=== PATIENT | female | born 1935 | race Caucasian/White ===

== ENCOUNTER 2019-09-18 16:04 | Inpatient (IN) ==
[2019-09-18] MEDS ORDERED: 0.9 % Sodium Chloride 1,000 ML IVC ONE (16:27)
[2019-09-18 17:12] LABS: Albumin 3.1 g/dL (3.5-5.7); Albumin/Globulin Ratio 1.1 (1.1-2.2); Bilirubin,Total 0.2 mg/dL (0.3-1.0); Calcium 8.6 mg/dL (8.6-10.3); Globulin 2.9 g/dL (2.4-3.5); Magnesium 1.9 mg/dL (1.6-2.6); Phosphorous 4.2 mg/dL (2.7-4.5); Potassium 4.9 mEq/L (3.5-5.1)
[2019-09-18 17:19] LABS: Basophils % 0.5 %; Eosinophils # 0.3 K/mcL (0.0-0.6); Eosinophils % 5.3 %; Hemoglobin 7.9 g/dL (11.5-15.4); Immature Granulocytes % 0.3 % (0-4); Lymphocytes # 1.7 K/mcL (0.6-4.6); Lymphocytes % 29.7 %; Mean Corpuscular HGB Conc 31.6 g/dL (31.6-35.5); Mean Corpuscular Hemoglobin 31.1 pg (28.0-33.3); Mean Corpuscular Volume 98.4 fL (83.0-100.0); Monocytes # 0.5 K/mcL (0.0-1.3); Monocytes % 9.1 %; Neutrophils # 3.2 K/mcL (1.6-8.9); Platelet Count 321 K/mcL (140-400); Red Blood Count 2.54 M/mcL (3.82-4.97); Red Cell Distribution Width 12.8 % (11.5-14.5); Segmented Neutrophils % 55.1 %; White Blood Count 5.8 K/mcL (4.3-11.1)
[2019-09-18] MEDS ORDERED: Naloxone 0.4 MG/ML INJ IVP PRN (17:35)
[2019-09-18] MEDS ORDERED: Ipratropium/Albuterol Neb 3 ML IH PRN (17:41)
[2019-09-18 17:43] LABS: Bilirubin,Urine Negative (Negative); Blood,Urine Moderate (Negative); Clarity,Urine Clear (Clear); Color,Urine Yellow (Yellow); Glucose,Urine (UA) Normal (Normal); Ketones,Urine Negative (Negative); Leukocyte Esterase,Urine Small (Negative); Nitrite,Urine Negative (Negative); PH,Urine 7.5 pH Units (5.0-8.0); Protein,Urine >=300 mg/dL (Neg-Trace); Urobilinogen,Urine Normal (Normal)
[2019-09-18 17:52] LABS: Squamous Epithelial Cell,Urine Few per lpf (None-Few); WBC,Urine 0-3 per hpf (0-3)
[2019-09-18 17:55] LABS: Bacteria,Urine Few per hpf (None-Few)
[2019-09-18 18:12] LABS: Uric Acid 9.1 mg/dL (2.3-7.6)
[2019-09-18] MEDS: amLODIPine 5 MG TABLET PO SCH (18:13)
[2019-09-19 06:23] LABS: Prothrombin Time 10.9 Seconds (9.4-12.1)
[2019-09-19 06:24] LABS: Basophils % 0.5 %; Eosinophils % 0.3 %; Immature Granulocytes % 0.5 % (0-4); Lymphocytes % 15.7 %; Mean Corpuscular Hemoglobin 31.3 pg (28.0-33.3); Mean Corpuscular Volume 97.7 fL (83.0-100.0); Mean Platelet Volume 9.5 fL (9.4-12.4); Monocytes # 0.4 K/mcL (0.0-1.3); Monocytes % 5.5 %; Platelet Count 310 K/mcL (140-400); Red Blood Count 2.56 M/mcL (3.82-4.97); Red Cell Distribution Width 12.8 % (11.5-14.5); Segmented Neutrophils % 77.5 %; White Blood Count 6.5 K/mcL (4.3-11.1)
[2019-09-19 06:40] LABS: Calcium 8.2 mg/dL (8.6-10.3); Chol/HDL Ratio 2.9 (0-4.9); Magnesium 1.7 mg/dL (1.6-2.6); Phosphorous 4.2 mg/dL (2.7-4.5); Potassium 4.3 mEq/L (3.5-5.1)
[2019-09-19 06:42] LABS: % Iron Saturation 20 % (15-50); Iron 47 mcg/dL (50-170); Transferrin 170 mg/dL (203-362)
[2019-09-19] MEDS ORDERED: METHENAMINE HIPPURATE 1 GM PO SCH (09:00)
[2019-09-19] MEDS: amLODIPine 5 MG TABLET PO SCH (09:10)
[2019-09-19] MEDS: levETIRAcetam 250 MG TABLET PO SCH ×2 (09:10→15:49)
[2019-09-19] MEDS: Gabapentin 100 MG CAPSULE PO SCH ×2 (09:49→21:13)
[2019-09-20] MEDS: levETIRAcetam 250 MG TABLET PO SCH ×2 (06:31→17:25)
[2019-09-20 08:07] LABS: Calcium 8.1 mg/dL (8.6-10.3)
[2019-09-20 08:56] LABS: Hematocrit 26.1 % (35.3-44.9); Hemoglobin 8.1 g/dL (11.5-15.4); Mean Corpuscular Hemoglobin 30.6 pg (28.0-33.3); Mean Corpuscular Volume 98.5 fL (83.0-100.0); Mean Platelet Volume 9.5 fL (9.4-12.4); Platelet Count 356 K/mcL (140-400); Red Blood Count 2.65 M/mcL (3.82-4.97); Red Cell Distribution Width 13.2 % (11.5-14.5); White Blood Count 7.6 K/mcL (4.3-11.1)
[2019-09-20] MEDS: Gabapentin 100 MG CAPSULE PO SCH ×2 (09:47→22:00)
[2019-09-20] MEDS: amLODIPine 5 MG TABLET PO SCH (09:47)
[2019-09-20] MEDS ORDERED: Ferumoxytol 510 MG in 0.9 % Sodium Chloride 100 ML IVPB ONE (11:28)
[2019-09-20 13:08] LABS: Hepatitis B Surface Antigen Nonreactive (Nonreactive)
[2019-09-20 13:37] LABS: Hepatitis B Core IgM Nonreactive (Nonreactive)
[2019-09-21] MEDS: levETIRAcetam 250 MG TABLET PO SCH (06:00)
[2019-09-21 06:59] LABS: Hemoglobin 9.2 g/dL (11.5-15.4); Mean Corpuscular HGB Conc 31.7 g/dL (31.6-35.5); Mean Corpuscular Hemoglobin 30.5 pg (28.0-33.3); Mean Platelet Volume 9.5 fL (9.4-12.4); Platelet Count 421 K/mcL (140-400); Red Blood Count 3.02 M/mcL (3.82-4.97); Red Cell Distribution Width 13.2 % (11.5-14.5); White Blood Count 7.8 K/mcL (4.3-11.1)
[2019-09-21 07:05] LABS: Calcium 8.6 mg/dL (8.6-10.3); Potassium 4.5 mEq/L (3.5-5.1)
[2019-09-21] MEDS: amLODIPine 5 MG TABLET PO SCH (08:44)
[2019-09-21] MEDS: Gabapentin 100 MG CAPSULE PO SCH (08:44)
[2019-09-21 11:19] VITALS: BP 144/70
== END 2019-09-21 16:04 | disposition home or self-care (01) | DRG 684 ==
LOC: 3BNU 16:04 → EMEROOARM 16:04 → 3BNU 18:44
PROVIDERS: ADMIT Internal Medicine; ATTEND Internal Medicine

== ENCOUNTER 2020-12-20 12:45 | Observation (INO) ==
[2020-12-20] MEDS ORDERED: *HR* Heparin 5,000 UNIT/ML VIAL HE ONE (16:00)
[2020-12-20] MEDS ORDERED: 0.9 % Sodium Chloride 500 ML IVC ONE (16:00)
[2020-12-20 16:47] LABS: Basophils % 0.5 %; Eosinophils # 0.2 K/mcL (0.0-0.6); Eosinophils % 2.3 %; Hematocrit 31.9 % (35.3-44.9); Hemoglobin 10.2 g/dL (11.5-15.4); Immature Granulocytes % 0.4 % (0-4); Lymphocytes # 2.2 K/mcL (0.6-4.6); Mean Corpuscular Volume 106.3 fL (83.0-100.0); Mean Platelet Volume 9.3 fL (9.4-12.4); Monocytes # 0.6 K/mcL (0.0-1.3); Monocytes % 7.5 %; Neutrophils # 5.1 K/mcL (1.6-8.9); Platelet Count 349 K/mcL (140-400); Red Cell Distribution Width 11.8 % (11.5-14.5); Segmented Neutrophils % 62.3 %; White Blood Count 8.1 K/mcL (4.3-11.1)
[2020-12-20] MEDS ORDERED: Acetaminophen 325 MG TABLET PO PRN (16:49)
[2020-12-20] MEDS ORDERED: Naloxone 0.4 MG/ML INJ IVP PRN (16:49)
[2020-12-20] MEDS ORDERED: Ondansetron ODT 4 MG TAB.RAPDIS SL PRN (16:49)
[2020-12-20 17:02] LABS: Calcium 9.3 mg/dL (8.6-10.3); Potassium 4.4 mEq/L (3.5-5.1)
[2020-12-20 19:23] LABS: Hepatitis B Surface Antibody < 3.10 mIU/mL
[2020-12-20 19:34] LABS: Hepatitis B Surface Antigen Nonreactive (Nonreactive)
[2020-12-20] MEDS: *HR* Heparin 5,000 UNIT/ML VIAL SQ SCH ×2 (21:27→21:31)
[2020-12-21 04:27] LABS: Hematocrit 30.2 % (35.3-44.9); Hemoglobin 9.7 g/dL (11.5-15.4); Mean Corpuscular HGB Conc 32.1 g/dL (31.6-35.5); Mean Corpuscular Hemoglobin 33.9 pg (28.0-33.3); Mean Corpuscular Volume 105.6 fL (83.0-100.0); Mean Platelet Volume 8.9 fL (9.4-12.4); Platelet Count 331 K/mcL (140-400); Red Blood Count 2.86 M/mcL (3.82-4.97); Red Cell Distribution Width 11.7 % (11.5-14.5); White Blood Count 8.1 K/mcL (4.3-11.1)
[2020-12-21 04:46] LABS: Magnesium 2.6 mg/dL (1.6-2.6); Phosphorous 8.3 mg/dL (2.7-4.5); Potassium 4.3 mEq/L (3.5-5.1)
[2020-12-21] MEDS: *HR* Heparin 5,000 UNIT/ML VIAL SQ SCH ×2 (05:12→13:59)
[2020-12-21] MEDS ORDERED: *HR* Heparin 10,000 UNIT/10 ML VIAL IV PRN (08:48)
[2020-12-21] MEDS ORDERED: 0.9 % Sodium Chloride 250 ML IVC PRN (08:48)
[2020-12-21] MEDS ORDERED: amLODIPine 5 MG TABLET PO SCH (09:00)
[2020-12-21] MEDS ORDERED: 0.9 % Sodium Chloride 1,000 ML PRIME SCH (09:00)
[2020-12-21] MEDS ORDERED: Gabapentin 100 MG CAPSULE PO SCH (09:00)
[2020-12-21 15:54] VITALS: BP 92/54
== END 2020-12-21 16:50 | disposition home or self-care (01) ==
LOC: 2ANU 12:45 → EMEROOARM 12:45 → SUATTDRO 18:57 → 2ANU 20:50
PROVIDERS: ADMIT Internal Medicine; ATTEND Internal Medicine

== ENCOUNTER 2022-01-30 15:34 | Inpatient (IN) ==
[2022-01-30 18:45] LABS: Hematocrit 19.7 % (35.3-44.9); Red Cell Distribution Width 15.4 % (11.5-14.5)
[2022-01-30 18:47] LABS: Basophils % 0.4 %; Eosinophils % 0.4 %; Immature Granulocytes % 0.9 % (0-4); Lymphocytes % 10.7 %; Mean Corpuscular HGB Conc 29.4 g/dL (31.6-35.5); Mean Corpuscular Hemoglobin 33.9 pg (28.0-33.3); Mean Corpuscular Volume 115.2 fL (83.0-100.0); Mean Platelet Volume 9.5 fL (9.4-12.4); Monocytes # 0.8 K/mcL (0.0-1.3); Monocytes % 8.3 %; Neutrophils # 7.3 K/mcL (1.6-8.9); Nucleated Red Blood Cells 0.3 /100 WBC (0); Platelet Count 488 K/mcL (140-400); Red Blood Count 1.71 M/mcL (3.82-4.97); Segmented Neutrophils % 79.3 %; White Blood Count 9.2 K/mcL (4.3-11.1)
[2022-01-30 18:51] LABS: Hemoglobin 5.8 g/dL (11.5-15.4)
[2022-01-30 19:13] LABS: Potassium 5.2 mEq/L (3.5-5.1); Troponin I 1.68 ng/mL (< 0.04)
[2022-01-30 19:14] LABS: Macrocytosis Present (Not Present)
[2022-01-30 19:57] LABS: INR 1.2
[2022-01-30 20:06] LABS: Alanine Aminotransferase 5 Units/L (7-52); Albumin 3.6 g/dL (3.5-5.7); Albumin/Globulin Ratio 1.1 (1.1-2.2); Alkaline Phosphatase 63 Units/L (34-104); Aspartate Amino Transferase 16 Units/L (13-39); Bilirubin,Direct 0.2 mg/dL (0.0-0.2); Bilirubin,Indirect 0.4 mg/dL (0.0-1.0); Bilirubin,Total 0.6 mg/dL (0.3-1.0); Globulin 3.2 g/dL (2.4-3.5); Lipase 37 Units/L (11-82); Magnesium 2.8 mg/dL (1.6-2.6); Total Protein 6.8 g/dL (6.4-8.9)
[2022-01-30 20:27] LABS: Bacteria,Urine Few per hpf (None-Few); Bilirubin,Urine Small (Negative); Blood,Urine Small (Negative); Clarity,Urine Clear (Clear); Color,Urine Dark-Yellow (Yellow); Glucose,Urine (UA) Normal (Normal); Ketones,Urine Trace mg/dL (Negative); Leukocyte Esterase,Urine Large (Negative); Nitrite,Urine Positive (Negative); PH,Urine 7.5 pH Units (5.0-8.0); Protein,Urine 100 mg/dL (Neg-Trace); RBC,Urine 0-3 per hpf (0-3); Specific Gravity,Urine 1.016 (1.010-1.025); Squamous Epithelial Cell,Urine Moderate per hpf (None-Few); WBC,Urine 30-50 per hpf (0-3)
[2022-01-30] MEDS ORDERED: cefTRIAXone 1,000 MG in 0.9 % Sodium Chloride 10 ML IVP ONE (20:47)
[2022-01-30] MEDS ORDERED: 0.9 % Sodium Chloride 250 ML ONE (21:22)
[2022-01-30] MEDS ORDERED: *HR* HYDROcodone/Acet 5/325 mg TABLET PO PRN (21:29)
[2022-01-30] MEDS ORDERED: Naloxone 0.4 MG/ML INJ IVP PRN (21:29)
[2022-01-30] MEDS ORDERED: *HR* OxyCODONE Immed Rel 5 MG TABLET PO PRN (21:29)
[2022-01-30] MEDS ORDERED: Acetaminophen 325 MG TABLET PO PRN (21:29)
[2022-01-30] MEDS ORDERED: *HR* Promethazine 25 MG/ML VIAL IM PRN (21:29)
[2022-01-30] MEDS ORDERED: Melatonin 3 MG TABLET PO PRN (21:29)
[2022-01-30] MEDS ORDERED: Ondansetron 4 MG/2 ML VIAL IVP PRN (21:29)
[2022-01-30] MEDS ORDERED: Perflutren Lipid Microsphere 1.3 ML in 0.9 % Sodium Chloride 8.7 ML IVP PRN (22:05)
[2022-01-30] MEDS ORDERED: SODIUM ZIRCONIUM CYCLOSILICATE 5 GM POWD.PACK PO ONE (22:20)
[2022-01-30 22:55] LABS: % Iron Saturation 23 % (15-50); Iron 53 mcg/dL (50-170); Lactate Dehydrogenase 281 Units/L (140-271); Transferrin 167 mg/dL (203-362)
[2022-01-30 23:03] LABS: Folate 9.2 ng/mL (3.0-16.0)
[2022-01-30 23:14] LABS: Ferritin > 1500 ng/mL (10-120)
[2022-01-30] MEDS: Gabapentin 100 MG CAPSULE PO SCH (23:58)
[2022-01-31 00:16] LABS: Immature Reticulocyte % 40.1 % (11.0-38.0); Retculocyte # 0.1 M/mcL (0.05-0.10); Reticulocyte % 5.1 % (1.6-2.8)
[2022-01-31] MEDS ORDERED: Cyanocobalamin (B-12) 1,000 MCG/ML VIAL IM ONE (00:54)
[2022-01-31 04:23] LABS: Basophils # 0.1 K/mcL (0.0-0.2); Basophils % 0.4 %; Eosinophils # 0.1 K/mcL (0.0-0.6); Eosinophils % 0.8 %; Hemoglobin 7.9 g/dL (11.5-15.4); Immature Granulocytes % 1.4 % (0-4); Lymphocytes # 1.7 K/mcL (0.6-4.6); Lymphocytes % 13.6 %; Mean Corpuscular HGB Conc 30.4 g/dL (31.6-35.5); Mean Corpuscular Volume 105.3 fL (83.0-100.0); Mean Platelet Volume 9.3 fL (9.4-12.4); Monocytes # 1.2 K/mcL (0.0-1.3); Monocytes % 9.7 %; Nucleated Red Blood Cells 0.9 /100 WBC (0); Platelet Count 495 K/mcL (140-400); Red Blood Count 2.47 M/mcL (3.82-4.97); Segmented Neutrophils % 74.1 %; White Blood Count 12.5 K/mcL (4.3-11.1)
[2022-01-31 04:27] LABS: INR 1.1; Prothrombin Time 12.7 Seconds (9.4-12.1)
[2022-01-31 04:31] LABS: Neutrophils # 9.3 K/mcL (1.6-8.9)
[2022-01-31 04:58] LABS: Chol/HDL Ratio 3.4 (0-4.9); Potassium 5.1 mEq/L (3.5-5.1)
[2022-01-31] MEDS: Pantoprazole 40 MG VIAL IVP SCH ×2 (08:00→18:07)
[2022-01-31] MEDS ORDERED: Cyanocobalamin (B-12) 1,000 MCG TABLET PO SCH (09:00)
[2022-01-31] MEDS: Cyanocobalamin (B-12) 1,000 MCG/ML VIAL SQ SCH (12:36)
[2022-01-31] MEDS: cefTRIAXone 1,000 MG in Water for inj. (sterile) 10 ML IVP SCH (12:39)
[2022-01-31] MEDS: Gabapentin 100 MG CAPSULE PO SCH ×2 (12:41→21:19)
[2022-01-31] MEDS ORDERED: 0.9 % Sodium Chloride 250 ML IVC PRN (13:18)
[2022-01-31] MEDS ORDERED: *HR* Heparin 10,000 UNIT/10 ML VIAL IV PRN (13:18)
[2022-01-31] MEDS ORDERED: 0.9 % Sodium Chloride 2,000 ML PRIME SCH (13:30)
[2022-01-31 13:52] LABS: Hepatitis B Surface Antibody < 3.10 mIU/mL
[2022-01-31 14:03] LABS: Hepatitis B Surface Antigen Nonreactive (Nonreactive)
[2022-01-31] MEDS ORDERED: Haloperidol Lactate 5 MG/ML VIAL IVP PRN (17:45)
[2022-02-01 02:46] LABS: Hematocrit 24.7 % (35.3-44.9); Hemoglobin 7.9 g/dL (11.5-15.4); Mean Corpuscular Hemoglobin 32.8 pg (28.0-33.3); Mean Corpuscular Volume 102.5 fL (83.0-100.0); Mean Platelet Volume 9.8 fL (9.4-12.4); Platelet Count 438 K/mcL (140-400); Red Blood Count 2.41 M/mcL (3.82-4.97); Red Cell Distribution Width 23.4 % (11.5-14.5); White Blood Count 11.7 K/mcL (4.3-11.1)
[2022-02-01 03:09] LABS: Calcium 8.7 mg/dL (8.6-10.3)
[2022-02-01] MEDS: Pantoprazole 40 MG VIAL IVP SCH ×2 (05:24→16:55)
[2022-02-01] MEDS: Gabapentin 100 MG CAPSULE PO SCH ×2 (08:24→21:08)
[2022-02-01] MEDS: cefTRIAXone 1,000 MG in Water for inj. (sterile) 10 ML IVP SCH (08:25)
[2022-02-01] MEDS: Cyanocobalamin (B-12) 1,000 MCG/ML VIAL SQ SCH (08:31)
[2022-02-02 02:56] LABS: Calcium 8.7 mg/dL (8.6-10.3); Potassium 3.8 mEq/L (3.5-5.1)
[2022-02-02] MEDS: Pantoprazole 40 MG VIAL IVP SCH (05:21)
[2022-02-02] MEDS: Cyanocobalamin (B-12) 1,000 MCG/ML VIAL SQ SCH (07:29)
[2022-02-02] MEDS: cefTRIAXone 1,000 MG in Water for inj. (sterile) 10 ML IVP SCH (07:44)
[2022-02-02] MEDS: Gabapentin 100 MG CAPSULE PO SCH ×2 (07:44→21:05)
[2022-02-02] MEDS ORDERED: 0.9 % Sodium Chloride 250 ML IVC PRN (08:25)
[2022-02-02] MEDS ORDERED: *HR* Heparin 10,000 UNIT/10 ML VIAL IV PRN ×2 (08:25)
[2022-02-02] MEDS ORDERED: 0.9 % Sodium Chloride 2,000 ML PRIME SCH (08:30)
[2022-02-02] MEDS ORDERED: cefTRIAXone 1,000 MG in Water for inj. (sterile) 10 ML IVP ONE (12:00)
[2022-02-02] MEDS ORDERED: *HR* Metoprolol 5 MG/5 ML VIAL IVP ONE (12:30)
[2022-02-02 12:34] VITALS: O2SAT 99
[2022-02-02] MEDS ORDERED: *HR* Digoxin 0.5 MG/2 ML AMPUL IVP ONE (13:19)
[2022-02-02] MEDS ORDERED: Albumin 25% 25gram/100mL 25 GM/100 ML IV.SOLN IVPB ONE (13:30)
[2022-02-02] MEDS ORDERED: carvediloL 6.25 MG TABLET PO SCH (17:00)
[2022-02-03 01:57] LABS: Calcium 8.6 mg/dL (8.6-10.3); Potassium 4.5 mEq/L (3.5-5.1)
[2022-02-03] MEDS ORDERED: Aspirin 81 MG TAB.CHEW PO SCH (09:00)
[2022-02-03] MEDS ORDERED: Cyanocobalamin (B-12) 1,000 MCG/ML VIAL IM ONE (09:04)
[2022-02-03] MEDS: cefTRIAXone 1,000 MG in Water for inj. (sterile) 10 ML IVP SCH (09:17)
[2022-02-03] MEDS: Gabapentin 100 MG CAPSULE PO SCH (09:17)
[2022-02-03] MEDS: Cyanocobalamin (B-12) 1,000 MCG/ML VIAL SQ SCH ×2 (09:21→09:38)
[2022-02-03 09:28] VITALS: BP 151/78; PULSE 105; TEMP 98.1
[2022-02-04] MEDS ORDERED: Cyanocobalamin (B-12) 1,000 MCG TABLET PO SCH (09:00)
== END 2022-02-03 11:20 | disposition home or self-care (01) | DRG 871 ==
LOC: EMEROOARM 15:34 → 2NENU 15:34 → SUATTDRO 01-31 09:37 → 2NENU 01-31 12:46
PROVIDERS: ADMIT Family Medicine; ATTEND Internal Medicine

== ENCOUNTER 2022-03-16 20:33 | Inpatient (IN) ==
[2022-03-16 22:33] LABS: Basophils # 0.1 K/mcL (0.0-0.2); Basophils % 0.8 %; Eosinophils # 0.5 K/mcL (0.0-0.6); Eosinophils % 6.8 %; Hematocrit 28.9 % (35.3-44.9); Hemoglobin 8.6 g/dL (11.5-15.4); Immature Granulocytes % 0.3 % (0-4); Lymphocytes # 1.6 K/mcL (0.6-4.6); Lymphocytes % 23.7 %; Mean Corpuscular HGB Conc 29.8 g/dL (31.6-35.5); Mean Corpuscular Hemoglobin 31.2 pg (28.0-33.3); Mean Corpuscular Volume 104.7 fL (83.0-100.0); Mean Platelet Volume 9.9 fL (9.4-12.4); Monocytes # 0.4 K/mcL (0.0-1.3); Monocytes % 6.1 %; Neutrophils # 4.1 K/mcL (1.6-8.9); Platelet Count 265 K/mcL (140-400); Red Blood Count 2.76 M/mcL (3.82-4.97); Red Cell Distribution Width 14.4 % (11.5-14.5); Segmented Neutrophils % 62.3 %; White Blood Count 6.6 K/mcL (4.3-11.1)
[2022-03-16 22:40] LABS: INR 1.1; Prothrombin Time 11.8 Seconds (9.4-12.1)
[2022-03-16 22:42] LABS: Activated Partial Thrombo Time 30.7 Seconds (26.0-36.0)
[2022-03-16 22:53] LABS: Alanine Aminotransferase < 3 Units/L (7-52); Albumin 3.6 g/dL (3.5-5.7); Albumin/Globulin Ratio 1.2 (1.1-2.2); Alkaline Phosphatase 53 Units/L (34-104); Aspartate Amino Transferase 9 Units/L (13-39); BUN/Creatinine Ratio 7 (6-26); Bilirubin,Direct 0.1 mg/dL (0.0-0.2); Bilirubin,Indirect 0.3 mg/dL (0.0-1.0); Bilirubin,Total 0.4 mg/dL (0.3-1.0); Blood Urea Nitrogen 49 mg/dL (8-23); Calcium 9.3 mg/dL (8.6-10.3); Carbon Dioxide 23 mEq/L (23-29); Chloride 112 mEq/L (98-107); Glucose 68 mg/dL (70-105); Magnesium 2.5 mg/dL (1.6-2.6); Osmolality,Calculated 307 (280-300); Phosphorous 4.4 mg/dL (2.7-4.5); Potassium 4.7 mEq/L (3.5-5.1); Sodium 143 mEq/L (136-145); Total Protein 6.6 g/dL (6.4-8.9)
[2022-03-16 23:09] LABS: Bacteria,Urine Few per hpf (None-Few); Bilirubin,Urine Negative (Negative); Blood,Urine Trace (Negative); Clarity,Urine Clear (Clear); Color,Urine Dark-Yellow (Yellow); Glucose,Urine (UA) 50 mg/dL (Normal); Ketones,Urine Trace mg/dL (Negative); Leukocyte Esterase,Urine Moderate (Negative); Mucus,Urine Few per lpf (None-Few); Nitrite,Urine Positive (Negative); PH,Urine 7.5 pH Units (5.0-8.0); Protein,Urine 100 mg/dL (Neg-Trace); Specific Gravity,Urine 1.013 (1.010-1.025); Squamous Epithelial Cell,Urine Few per hpf (None-Few); Urobilinogen,Urine Normal (Normal); WBC,Urine 50-100 per hpf (0-3)
[2022-03-17] MEDS ORDERED: cefTRIAXone 1,000 MG in 0.9 % Sodium Chloride Mini Bag 100 ML IVPB ONE (00:45)
[2022-03-17] MEDS ORDERED: Acetaminophen 325 MG TABLET PO PRN (01:40)
[2022-03-17] MEDS ORDERED: Melatonin 3 MG TABLET PO PRN (01:40)
[2022-03-17] MEDS ORDERED: Ondansetron ODT 4 MG TAB.RAPDIS SL PRN (01:40)
[2022-03-17] MEDS ORDERED: Naloxone 0.4 MG/ML INJ IVP PRN (01:40)
[2022-03-17] MEDS ORDERED: cefTRIAXone 1,000 MG in Water for inj. (sterile) 10 ML IVP ONE (01:43)
[2022-03-17] MEDS ORDERED: *HR* Labetalol 20 MG/4 ML SYRINGE IVP ONE (02:37)
[2022-03-17] MEDS ORDERED: QUEtiapine Fumarate 25 MG TABLET PO SCH (03:30)
[2022-03-17] MEDS ORDERED: Ondansetron 4 MG/2 ML VIAL IVP ONE (06:19)
[2022-03-17] MEDS ORDERED: Dextrose Gel 15 GM/37.5 ML TUBE PO PRN ×2 (08:35)
[2022-03-17] MEDS ORDERED: D5% in Water 1,000 ML IVC PRN (08:35)
[2022-03-17] MEDS ORDERED: *HR* Dextrose 50 % in Water (Syg) 50 ML SYRINGE IVP PRN (08:35)
[2022-03-17] MEDS ORDERED: *HR* Metoprolol 5 MG/5 ML VIAL IVP PRN (08:52)
[2022-03-17] MEDS ORDERED: Albumin 25% 25gram/100mL 25 GM/100 ML IV.SOLN IVPB PRN (08:55)
[2022-03-17] MEDS ORDERED: 0.9 % Sodium Chloride 250 ML IVC PRN ×2 (08:55→09:00)
[2022-03-17] MEDS ORDERED: Ethyl Chloride Spray Bottle (104 SPRAY/BOTTLE) TP PRN (08:55)
[2022-03-17] MEDS ORDERED: 0.9 % Sodium Chloride 2,000 ML PRIME SCH (09:00)
[2022-03-17 11:14] LABS: Hematocrit 26.6 % (35.3-44.9); Hemoglobin 7.9 g/dL (11.5-15.4); Mean Corpuscular HGB Conc 29.7 g/dL (31.6-35.5); Mean Corpuscular Hemoglobin 30.6 pg (28.0-33.3); Mean Corpuscular Volume 103.1 fL (83.0-100.0); Mean Platelet Volume 9.7 fL (9.4-12.4); Platelet Count 215 K/mcL (140-400); Red Blood Count 2.58 M/mcL (3.82-4.97); Red Cell Distribution Width 14.6 % (11.5-14.5); White Blood Count 4.5 K/mcL (4.3-11.1)
[2022-03-17] MEDS ORDERED: *HR* Alteplase (Cathflo) 2 MG VIAL IVP ONE (11:14)
[2022-03-17 11:47] LABS: Calcium 8.5 mg/dL (8.6-10.3); Magnesium 2.1 mg/dL (1.6-2.6); Phosphorous 2.8 mg/dL (2.7-4.5); Potassium 3.3 mEq/L (3.5-5.1)
[2022-03-17 11:49] LABS: Hepatitis B Surface Antibody < 3.10 mIU/mL
[2022-03-17 12:00] LABS: Hepatitis B Surface Antigen Nonreactive (Nonreactive)
[2022-03-17] MEDS: *HR* Heparin 5,000 UNIT/ML VIAL SQ SCH ×2 (14:32→21:02)
[2022-03-17] MEDS ORDERED: *HR* Metoprolol 5 MG/5 ML VIAL IVP ONE (17:32)
[2022-03-17] MEDS ORDERED: cefTRIAXone 2,000 MG in 0.9 % Sodium Chloride 20 ML IVP SCH (21:00)
[2022-03-17] MEDS: QUEtiapine Fumarate 25 MG TABLET PO SCH (21:02)
[2022-03-18] MEDS: cefTRIAXone 1,000 MG in Water for inj. (sterile) 10 ML IVP SCH (01:57)
[2022-03-18] MEDS: *HR* Heparin 5,000 UNIT/ML VIAL SQ SCH ×3 (06:25→20:17)
[2022-03-18] MEDS: Aspirin 81 MG TAB.CHEW PO SCH (08:13)
[2022-03-18] MEDS: Cyanocobalamin (B-12) 1,000 MCG TABLET PO SCH (08:15)
[2022-03-18] MEDS ORDERED: Gabapentin 100 MG CAPSULE PO SCH (09:00)
[2022-03-18] MEDS ORDERED: *HR* Metoprolol 5 MG/5 ML VIAL IVP ONE (09:16)
[2022-03-18] MEDS ORDERED: *HR* Metoprolol 5 MG/5 ML VIAL IVP PRN (09:16)
[2022-03-18] MEDS ORDERED: amLODIPine 5 MG TABLET PO SCH (13:45)
[2022-03-18] MEDS ORDERED: QUEtiapine Fumarate 25 MG TABLET PO PRN (15:40)
[2022-03-18] MEDS: QUEtiapine Fumarate 25 MG TABLET PO SCH (20:15)
[2022-03-18] MEDS ORDERED: QUEtiapine Fumarate 25 MG TABLET PO SCH (21:00)
[2022-03-19] MEDS: cefTRIAXone 1,000 MG in Water for inj. (sterile) 10 ML IVP SCH (01:38)
[2022-03-19] MEDS: *HR* Heparin 5,000 UNIT/ML VIAL SQ SCH ×3 (06:43→23:28)
[2022-03-19] MEDS: Cyanocobalamin (B-12) 1,000 MCG TABLET PO SCH (09:13)
[2022-03-19] MEDS: Aspirin 81 MG TAB.CHEW PO SCH (09:13)
[2022-03-19 10:25] LABS: Basophils # 0.1 K/mcL (0.0-0.2); Basophils % 0.6 %; Eosinophils # 0.4 K/mcL (0.0-0.6); Eosinophils % 5.5 %; Hematocrit 32.8 % (35.3-44.9); Immature Granulocytes % 0.2 % (0-4); Lymphocytes # 1.9 K/mcL (0.6-4.6); Lymphocytes % 23.5 %; Mean Corpuscular HGB Conc 29.9 g/dL (31.6-35.5); Mean Corpuscular Hemoglobin 31.1 pg (28.0-33.3); Mean Corpuscular Volume 104.1 fL (83.0-100.0); Mean Platelet Volume 10.4 fL (9.4-12.4); Monocytes # 0.6 K/mcL (0.0-1.3); Monocytes % 7.6 %; Platelet Count 279 K/mcL (140-400); Red Blood Count 3.15 M/mcL (3.82-4.97); Segmented Neutrophils % 62.6 %
[2022-03-19 10:26] LABS: Hemoglobin 9.8 g/dL (11.5-15.4)
[2022-03-19 10:42] LABS: % Iron Saturation 30 % (15-50); Calcium 9.4 mg/dL (8.6-10.3); Iron 69 mcg/dL (50-170); Potassium 3.8 mEq/L (3.5-5.1); Transferrin 166 mg/dL (203-362)
[2022-03-19] MEDS: Gabapentin 100 MG CAPSULE PO SCH (15:04)
[2022-03-19] MEDS: QUEtiapine Fumarate 25 MG TABLET PO SCH (20:14)
[2022-03-20] MEDS: cefTRIAXone 1,000 MG in Water for inj. (sterile) 10 ML IVP SCH (00:28)
[2022-03-20] MEDS: *HR* Heparin 5,000 UNIT/ML VIAL SQ SCH ×2 (05:51→15:54)
[2022-03-20] MEDS ORDERED: 0.9 % Sodium Chloride 250 ML IVC PRN (08:16)
[2022-03-20] MEDS ORDERED: *HR* Heparin 10,000 UNIT/10 ML VIAL IV PRN (08:16)
[2022-03-20] MEDS: Aspirin 81 MG TAB.CHEW PO SCH (09:08)
[2022-03-20] MEDS: QUEtiapine Fumarate 25 MG TABLET PO SCH (09:08)
[2022-03-20] MEDS: Cyanocobalamin (B-12) 1,000 MCG TABLET PO SCH (09:09)
[2022-03-20] MEDS ORDERED: Fluconazole 150 MG TABLET PO ONE (12:36)
[2022-03-20 13:40] LABS: Basophils % 0.4 %; Eosinophils # 0.3 K/mcL (0.0-0.6); Eosinophils % 3.4 %; Hemoglobin 9.2 g/dL (11.5-15.4); Immature Granulocytes % 0.3 % (0-4); Lymphocytes # 1.4 K/mcL (0.6-4.6); Lymphocytes % 18.1 %; Mean Corpuscular HGB Conc 30.7 g/dL (31.6-35.5); Mean Corpuscular Hemoglobin 31.2 pg (28.0-33.3); Mean Corpuscular Volume 101.7 fL (83.0-100.0); Mean Platelet Volume 10.3 fL (9.4-12.4); Monocytes # 0.4 K/mcL (0.0-1.3); Monocytes % 5.3 %; Neutrophils # 5.5 K/mcL (1.6-8.9); Platelet Count 227 K/mcL (140-400); Red Blood Count 2.95 M/mcL (3.82-4.97); Red Cell Distribution Width 14.9 % (11.5-14.5); Segmented Neutrophils % 72.5 %; White Blood Count 7.6 K/mcL (4.3-11.1)
[2022-03-20 13:59] LABS: Calcium 8.7 mg/dL (8.6-10.3); Potassium 3.4 mEq/L (3.5-5.1)
[2022-03-20] MEDS: Gabapentin 100 MG CAPSULE PO SCH ×2 (15:58→16:02)
[2022-03-20 16:29] VITALS: BP 165/92; TEMP 98.1
[2022-03-20 16:33] VITALS: PULSE 74; O2SAT 94
== END 2022-03-20 17:35 | disposition home health service (06) | DRG 689 ==
LOC: 2NENU 20:33 → EMEROOARM 20:33 → SUATTDRO 03-17 02:04 → 2NENU 03-17 02:47 → SUATTDRO 03-17 12:24
PROVIDERS: ADMIT Internal Medicine; ATTEND Internal Medicine